=== PATIENT | male | born 1960 | race Caucasian/White ===

== ENCOUNTER 2020-06-08 09:14 | Emergency (ER) | payer MEDICAID ==
[~2020-06-08] VITALS: Ht 188 cm; Wt 117.5 kg
--- NOTE | 2020-06-08 09:14 | NUR ---
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 PT IS AAOX1, NOT IN RESPIRATORY DISTRESS, HOOKED TO [employer], KEPT RESTED AND COMFORTABLE. WILL CONTINUE TO MONITOR.
--- NOTE | 2020-06-08 09:25 | NUR ---
SEEN AND EXAMINED BY .
--- NOTE | 2020-06-08 09:30 | NUR ---
URINE SPECIMEN COLLECTED AND SENT TO LAB.
[2020-06-08 09:46] LABS: BILIRUBIN,URINE Negative (NEGATIVE); BLOOD, URINE Negative Ery/uL (NEGATIVE); COLOR,URINE YELLOW (YELLOW); LEUKOCYTE ESTERASE ,URINE Negative (NEGATIVE); NITRITE, URINE Negative (NEGATIVE); PH,URINE 6.5 (5.0-8.0); PROTEIN,URINE Negative (NEGATIVE); UGLUCOSE Negative (NEGATIVE)
[2020-06-08 09:50] LABS: BASOPHILS # (AUTO) 0.1 /CMM (0.0-0.2); HEMATOCRIT 50 % (39-51); LYMPHOCYTES # (AUTO) 1.3 /CMM (0.8-4.8); LYMPHOCYTES % (AUTO) 15.9 % (20.0-44.0); MEAN CORPUSCULAR HGB CONC 34 g/dl (31.0-36.0); MEAN CORPUSCULAR VOLUME 98 fL (80-96); MONOCYTES # (AUTO) 0.4 /CMM (0.1-1.30); MONOCYTES % (AUTO) 5.4 % (2.0-12.0); NEUTROPHILS # (AUTO) 6.2 /CMM (1.8-8.9); NEUTROPHILS % (AUTO) 76.7 % (43.0-81.0); PLATELET COUNT (AUTO) 268 /CMM (150-450); RED BLOOD CELL COUNT(AUTO) 5.07 MIL/uL (4.5-6.0); WHITE BLOOD COUNT (AUTO) 8.1 K/uL (4.3-11.0)
[2020-06-08 09:52] LABS: CALCIUM, SERUM 9.8 mg/dL (8.5-10.1); CARBON DIOXIDE 29 mmol/L (21-32); CHLORIDE 98 mmol/L (98-107); CREATININE 0.8 mg/dL (0.6-1.3); GLUCOSE 98 mg/dL (74-106); POTASSIUM 3.2 mmol/L (3.5-5.1); SODIUM SERUM 136 mmol/L (136-145); UREA NITROGEN, BLOOD 16 mg/dL (7-18)
[2020-06-08 09:58] LABS: RBC,URINE 0-2 /HPF (0-2); WBC,URINE 0-2 /HPF (0-3)
[2020-06-08 10:03] LABS: BACTERIA,URINE Few /HPF (None Seen); SQUAMOUS EPITHELIAL CELL,UR Few /HPF (None Seen)
[2020-06-08 10:08] LABS: ALANINE AMINOTRANSFERASE 40 U/L (12-78); ALBUMIN 4.2 g/dL (3.4-5.0); ALCOHOL, BLOOD < 3 mg/dL (0-0); ALKALINE PHOSPHATASE 80 U/L (46-116); ASPARTATE AMINOTRANSFERASE 89 U/L (15-37); BILIRUBIN,DIRECT 0.2 mg/dL (0.0-0.2); BILIRUBIN,TOTAL 0.9 mg/dL (0.2-1.0); TOTAL PROTEIN, SERUM 8.2 g/dL (6.4-8.2)
--- NOTE | 2020-06-08 10:17 | NUR ---
PT IS BACK FROM THE CT SCAN.
--- NOTE | 2020-06-08 14:38 | NUR ---
ASSESSED PT ON BED PT IS AAOX2, PT STILL APPEARS TO BE DROWSY, V/S STABLE, KEPT RESTED AND COMFORTABLE. WILL CONTINUE TO MONITOR.
--- NOTE | 2020-06-08 15:37 | NUR ---
PT STILL UNABLE TO STAND WITHOUT ASSISTANCE.
--- NOTE | 2020-06-08 19:00 | NUR ---
PT RELATIVE ANGELITO KYLE STATES ETA 1 HOUR FOR STORY ANALYST PHONE NUMBER:
--- NOTE | 2020-06-08 19:23 | NUR ---
IV removed. Catheter intact and site benign. Pressure and 4x4 applied to site. No bleeding noted.
--- NOTE | 2020-06-08 19:37 | NUR ---
PT AMBUALTED TO THE PHONE STATION TO MAKE A CALL TO HIS FAMILY.
--- NOTE | 2020-06-08 19:42 | NUR ---
PT REQUESTING TO LEAVE. PT AMBULATORY WITH STEADY GAIT. AMBULATED TO THE NURSING STATION. IV WAS REMOVED. PT SIGNED DISCHARGE PAPER WORK. PICKED UP BY .
[2020-06-08 19:54] VITALS: BP 128/79
== END 2020-06-08 19:55 | disposition home or self-care (01) ==
LOC: ER 09:19
DX: R41.82 Altered mental status, unspecified (principal); F19.10 Other psychoactive substance abuse, uncomplicated; R94.31 Abnormal electrocardiogram [ECG] [EKG]
CPT/HCPCS: 36415; 70450-TC; 71045-TC; 72125-TC; 80048-TC; 80076-TC; 81001; 84484-TC; 85025-TC; 85730-TC; G0480